=== PATIENT | female | born 1990 | race Caucasian/White ===

== ENCOUNTER 2016-10-11 20:39 | Emergency (ER) | payer MEDICAID ==
[~2016-10-11] VITALS: Wt 55.0 kg
[2016-10-11] MEDS ORDERED: ALPR0.5T PO (22:07)
--- NOTE | 2016-10-11 22:29 | ERD ---
ER Documentation Chief Complaint Date/Time DATE: 10/11/16 TIME: 22:23 Chief Complaint congestion/body aches x 5 days HPI 26-year-old female presents chief complaint of 5 days of feeling depressed, insomnia, and associated anxiousness. She denies suicidal homicidal ideation, hallucination, and delusions. Denies any history of suicide attempts. Reports history of depression 2 years ago, has since discontinued use of SSRI. She reports intermittent feeling of anxiousness, palpitations, shortness of breath. States she felt like this earlier tonight. Has fears of getting hurt, and is unable to sleep secondary to worrying. She denies seeing a therapist in the past. Denies history of any other psychological disorders. ROS All systems reviewed and are negative except as per history of present illness. Medications Home Meds Active Scripts Alprazolam* (Xanax*) 0.5 Mg Tab, 0.5 MG PO Q8H Y for ANXIETY for 7 Days, #10 TAB Prov:Lilian Batista PA-C 10/11/16 Allergies Allergies: Coded Allergies: No Known Drug Allergies (Verified Allergy, Unknown, 10/11/16) PMhx/Soc Hx Psychiatric Problems: Yes ( DEPRESSION) Hx Alcohol Use: No Hx Substance Use: No Hx Tobacco Use: No Physical Exam Vitals Vital Signs Date Time Temp Pulse Resp B/P Pulse Ox O2 Delivery O2 Flow Rate FiO2 10/11/16 20:43 98.5 84 20 138/88 97 Physical Exam GENERAL: Non-toxic. No apparent signs of distress. Is alert and oriented 3, is providing history in full sentences and is coherent. LUNGS: Clear to auscultation. No accessory muscle use. No wheezing, no crackles. No signs or symptoms of respiratory distress. HEART: Regular rate and rhythm. No murmurs, clicks, rubs or gallops. NEURO: The patient moves all 4 extremities with 5/5 strength. Cranial nerves are grossly intact. Normal mental status for age. Good muscle tone. SKIN: There is no apparent rash, petechiae, erythema or swelling. No signs of trauma. Good skin turgor. PSYCH: Normal mood and normal affect. Normal thought process, normal judgment, no suicidal or homicidal ideation. No hallucinations or delusions. Results 24 hrs Current Medications Medications (Trade) Dose Ordered Sig/Juanita Route PRN Reason Start Time Stop Time Status Last Admin Dose Admin Lorazepam (Ativan) 1 mg ONCE ONCE PO 10/11/16 22:30 10/11/16 22:31 10/11/16 22:10 Procedures/MDM Patient presents with complaint of depression related symptoms 1 week including insomnia. Also reports associated anxiety. States that she was treated for depression 2 years ago and has since discontinued use of her SSRI. She denies seeing a therapist. She currently denies suicidal and homicidal ideation. She denies delusions and hallucinations. Has no other psychiatric history other than depression. Has not seen a primary care doctor for this problem yet. On exam she has a normal mood and normal affect. Appears to be in no acute distress. However she reports prior to coming here she felt anxious, had palpitations and shortness of breath. She says that since then her symptoms have mildly improved. She also reports insomnia, says she is unable to sleep because she worries about things going on in her life. At this time of low suspicion for bipolar disorder, schizophrenia, and suicidal risk. I do not believe that a psych workup or psych evaluation is necessary at this time. I explained to the patient that depression is not managed in the ER , this is often a long-term diagnosis and she should be followed by primary care doctor therapist. I explained that I be providing a list of local clinics where she can follow-up for this problem. However, I stated that I could prescribe a short course of benzodiazepines to help with her insomnia and anxiety. Asked the patient if she wished to have treatment for her anxiety at this time, she stated that she did. She denied driving here, is accompanied by her friend who will be driving her home. I ordered 1 mg of Ativan. I provided a prescription for a small amount of Xanax, 10 tabs of 0.5 mg. Advised the patient not to drive while taking this medication that is it is sedating. Patient given strict instructions to follow-up with community clinic in 1-2 days for further management of her depression. Sooner if she begins to have thoughts of harming herself or others, or begins to hear voices or seeing things that are not there. Departure Diagnosis: Primary Impression: Depression Depression Type: unspecified Qualified Code: F32.9 - Depression, unspecified depression type Additional Impressions: Insomnia Insomnia type: unspecified Qualified Code: G47.00 - Insomnia, unspecified type Anxiety Condition: Good Patient Instructions: Depression Affects Your Mind and Body, Treating Anxiety Disorders with Medication Referrals: [facility] YOU HAVE RECEIVED A MEDICAL SCREENING EXAM AND THE RESULTS INDICATE THAT YOU DO NOT HAVE A CONDITION THAT REQUIRES URGENT TREATMENT IN THE EMERGENCY DEPARTMENT. FURTHER EVALUATION AND TREATMENT OF YOUR CONDITION CAN WAIT UNTIL YOU ARE SEEN IN YOUR DOCTORS OFFICE WITHIN THE NEXT 1-2 DAYS. IT IS YOUR RESPONSIBILITY TO MAKE AN APPOINTMENT FOR FOLOW-UP CARE. IF YOU HAVE A PRIMARY DOCTOR --you should call your primary doctor and schedule an appointment IF YOU DO NOT HAVE A PRIMARY DOCTOR YOU CAN CALL OUR PHYSICIAN REFERRAL HOTLINE AT IF YOU CAN NOT AFFORD TO SEE A PHYSICIAN YOU CAN CHOSE FROM THE FOLLOWING [facility] [address] [facility] [address] [facility]. [facility] [address] [facility] [address] [facility] [address] [facility] [facility]. [address] Additional Instructions: Call your primary care doctor TOMORROW for an appointment during the next 1-2 days.See the doctor sooner or return here if your condition worsens before your appointment time. Return to ER if you begin to have any thoughts of suicide or harming others, follow-up with a primary care doctor or a community clinic for referral to therapist and/or initiating depression medication. Lilian Batista PA-C Oct 11, 2016 22:29
[2016-10-11] MEDS ORDERED: LORAZEPAM 1 MG TAB PO ONE (22:30)
[2016-10-11 23:56] VITALS: BP 131/77; PULSE 87; RESP 17; TEMP 98.4
== END 2016-10-11 23:58 | disposition home or self-care (01) ==
LOC: FTE 20:39
DX: F32.9 Major depressive disorder, single episode, unspecified (principal); G47.00 Insomnia, unspecified; F41.9 Anxiety disorder, unspecified
CPT/HCPCS: Z7502; Z7610; 99283

== ENCOUNTER 2017-10-01 17:09 | Emergency (ER) | END 2017-10-01 22:33 | disposition home or self-care (01) ==

== ENCOUNTER 2018-05-17 12:04 | Emergency (ER) | END 2018-05-17 13:03 | disposition home or self-care (01) ==